=== PATIENT | female | born 1960 | race Caucasian/White ===

== ENCOUNTER 2023-07-08 10:05 | Day surgery (SDC) | payer OTHER ==
[~2023-07-08] VITALS: Ht 154.9 cm; Wt 63.5 kg
[2023-07-08] MEDS ORDERED: LIDOCAINE 2% 1000 MG/50 ML VIAL INJ ONE (11:58)
[2023-07-08] MEDS ORDERED: fentaNYL citrate 0.05 MG/ML VIAL ONE (12:13)
[2023-07-08] MEDS ORDERED: fentaNYL citrate 0.05 MG/ML VIAL IVP ONE (12:30)
== END 2023-07-08 13:50 | disposition home or self-care (01) ==
LOC: MDS 10:05 → MMU 10:39 → MDS 13:50
PROVIDERS: ATTEND Internal Medicine Gastroenterology
DX: R94.5 Abnormal results of liver function studies (principal); I10 Essential (primary) hypertension; E78.5 Hyperlipidemia, unspecified; M06.9 Rheumatoid arthritis, unspecified; Z90.49 Acquired absence of other specified parts of digestive tract; Z79.899 Other long term (current) drug therapy
CPT/HCPCS: 47000; J2001; J3010; 88307; 88313